=== PATIENT | female | born 1965 | race Caucasian/White ===

== ENCOUNTER → 2017-02-15 | Outpatient (CLI) | payer BC ==
--- NOTE | 2017-02-16 14:14 | REP ---
THYROID UPTAKE AND SCAN: HISTORY: Hyperthyroidism. TECHNIQUE: 341 microcuries of I 123 sodium iodide is ingested and 24-hour uptake value is acquired. Functional thyroid images are acquired. SCINTIGRAPHIC FINDINGS: The 24 are uptake value is increased at 40.49% (25 to 35%). Functional thyroid images demonstrate homogeneous uptake in the thyroid lobes bilaterally. A normal variant pyramidal lobe is seen with homogeneous uptake as well. IMPRESSION: No cold or warm lesion seen. Homogeneous uptake, increased radioiodine uptake value. Findings compatible with Graves disease. Signed by Roshan Trejo MD 02/16/2017 02:21 P
== END ==
LOC: M RAD 12:44
PROVIDERS: ATTEND Internal Medicine Endocrinology, Diabetes & Metabolism
DX: E04.9 Nontoxic goiter, unspecified (principal)

== ENCOUNTER → 2017-03-07 | Outpatient (CLI) | payer BC | LOC: M RAD 10:36 | PROVIDERS: ATTEND Internal Medicine Endocrinology, Diabetes & Metabolism | DX: E05.90 Thyrotoxicosis, unspecified without thyrotoxic crisis or storm (principal) ==